=== PATIENT | male | born 1955 | race Caucasian/White ===

== ENCOUNTER → 2017-07-12 | Outpatient (CLI) | payer OTHER | LOC: FIMAGING 06:48 | PROVIDERS: ATTEND Family Medicine | DX: Z53.09 Procedure and treatment not carried out because of other contraindication (principal) ==

== ENCOUNTER → 2017-07-13 | Outpatient (CLI) | payer OTHER | LOC: FIMAGING 06:58 | PROVIDERS: ATTEND Family Medicine | DX: M25.512 Pain in left shoulder (principal); M25.511 Pain in right shoulder ==

== ENCOUNTER 2017-08-03 21:29 | Observation (INO) | payer OTHER ==
--- NOTE | 2017-08-03 21:54 | EDPHY ---
H & P Stated Complaint: bloating, abd pain on left side, diarrhea since this morning HPI/ROS: HPI CHIEF COMPLAINT: Abdominal pain, left-sided abdominal pain HISTORY OF PRESENT ILLNESS: This patient very pleasant 61-year-old male, significant past medical history for coronary artery disease with stents, inguinal hernia repair, he presents emergency room with abdominal pain. It is focal in one area left upper quadrant. Denies chest pain or shortness of breath. Pain is rather sharp in the left upper quadrant. It is worse when he breathes in however he denies any pleuritic pain or shortness of breath or chest pain. Pain is focal on exam and reproducible on exam. No flank pain. No urinary symptoms. No fever. No nausea or vomiting. Does endorse watery yellow diarrhea without blood. Past Medical History: Coronary artery disease with stents x2 Past Surgical History: Inguinal hernia repair Social History: Denies daily use of drugs alcohol tobacco. Intermittently smokes tobacco. Family History: Noncontributory ROS REVIEW OF SYSTEMS: A comprehensive 10 point review of systems is otherwise negative aside from elements mentioned in the history of present illness. Exam Constitutional appears well nontoxic triage nursing summary reviewed, vital signs reviewed, awake/alert. Eyes normal conjunctivae and sclera, EOMI, PERRLA. HENT normal inspection, atraumatic, moist mucus membranes, no epistaxis, neck supple/ no meningismus, no raccoon eyes. Respiratory clear to auscultation bilaterally, normal breath sounds, no respiratory distress, no wheezing. Cardiovascular rate normal, regular rhythm, no murmur, no edema, distal pulses normal. Gastrointestinal soft, focal tenderness in left upper quadrant, reproducible on exam, non-tender, no rebound, no guarding, normal bowel sounds, no distension , no pulsatile mass. Genitourinary no CVA tenderness. Musculoskeletal no midline vertebral tenderness, full range of motion, no calf swelling, no tenderness of extremities, no meningismus, good pulses, neurovascularly intact. Skin pink, warm, & dry, no rash, skin atraumatic. Neurologic awake, alert and oriented x 3, AAOx3, moves all 4 extremities equally, motor intact, sensory intact, CN II-XII intact, normal cerebellar, normal vision, normal speech. Psychiatric normal mood/affect. Heme/Lymph/Immune no lymphadenopathy. Differential diagnosis includes but is not limited to and in no particular order : Bowel obstruction, appendicitis, gallbladder disease, diverticulitis, colitis , enteritis, perforated viscus, gastritis, GERD, esophagitis, urinary tract infection, pyelonephritis, kidney stones Medical Decision Making: Plan for this patient IV establishment IV fluid bolus , he has declined pain medicine here in emergency room. Will proceed with CT scan abdomen pelvis with IV contrast to help delineate his acute left upper quadrant abdominal pain. Additionally will check troponin and D-dimer. EKG. Unlikely to be cardiac presentation given reproducible tenderness on exam. Re-evaluation: EKG interpretation by me on record in [facility] system. Impression time of EKG 2213, this is sinus rhythm rate of 72 no acute ischemia appreciated. Unremarkable EKG. 2256: Patient CT scan called to me by Dr. Dewayne Moore. Patient has acute diverticulitis mid descending colon with stranding. No perforation. No free air. 5: Discussed extensively with the patient about his acute diverticulitis with colonic stranding. He has uncomplicated diverticulitis however patient has ongoing pain declined pain medicine here in emergency room. He does have a leukocytosis. He is agreeable on hospital admission overnight for IV fluids bowel rest IV antibiotics. I feel that this is reasonable. There is no perforation or free air. There is no abscess formation. Patient admitted to the hospitalist service for acute diverticulitis. Source: Patient - Personal History Current Tetanus/Diphtheria Vaccine: Yes Current Tetanus Diphtheria and Acellular Pertussis (TDAP): Yes Tetanus Vaccine Date: <10 YRS - Medical/Surgical History Hx Asthma: No Hx Chronic Respiratory Disease: No Hx Diabetes: No Hx Cardiac Disease: Yes Hx Renal Disease: No Hx Cirrhosis: No Hx Alcoholism: No Hx HIV/AIDS: No Hx Splenectomy or Spleen Trauma: No Other PMH: 2 stents, 6 spinal sx, fused lumbvar and cervical, - Social History Smoking Status: Former smoker Constitutional: Initial Vital Signs Temperature (C) 37.1 C 08/03/17 21:31 Heart Rate 78 08/03/17 21:31 Respiratory Rate 18 08/03/17 21:31 Blood Pressure 131/98 H 08/03/17 21:31 O2 Sat (%) 94 08/03/17 21:31 O2 Delivery Mode Room Air Allergies/Adverse Reactions: No Allergies [NKA] Allergy (Verified 06/07/11 15:31) Home Medications: Medication Instructions Recorded Cholecalciferol Vit D3 [Vitamin D3 1,000 units PO BID 07/26/12 (*)] Losartan Potassium [Cozaar 50 mg 50 mg PO DAILY 07/26/12 (RX)] Metoprolol Tartrate [Lopressor 50 50 mg PO BID 07/26/12 mg (*)] [place]-3 Fatty Acids [Fish Oil 1000 1,000 mg PO BID 07/26/12 mg (*)] Rosuvastatin Calcium [Crestor 20mg 20 mg PO DAILY 07/26/12 (*)] Herbals/Supplements -Info Only 1 ea PO DAILY 11/07/14 ASPIRIN 08/03/17 Clopidogrel 08/03/17 Coq-10 08/03/17 Lutein 08/03/17 Zetia 08/03/17 Medical Decision Making - Diagnostics Imaging Results: Imaging Impressions Abdomen CT 08/03/17 22:03 Impression: Moderate diverticulitis in the middescending colon. Other chronic findings as above. Results called and discussed with Darren Correa MD, 03 August 2017 at 2258 hours. - Data Points Laboratory Results: Laboratory Results 08/03/17 21:50 08/03/17 21:50 08/03/17 08/03/17 08/03/17 22:20 22:15 21:50 WBC RBC Hgb Hct MCV MCH MCHC RDW Plt Count MPV Neut % (Auto) Lymph % (Auto) [place] % (Auto) Eos % (Auto) Baso % (Auto) Nucleat RBC Rel Count Absolute Neuts (auto) Absolute Lymphs (auto) Absolute Monos (auto) Absolute Eos (auto) Absolute Basos (auto) Absolute Nucleated RBC Immature Gran % Immature Gran # PT 13.1 SEC SEC (12.0-15.0) INR 1.00 (0.83-1.16) APTT 27.3 SEC SEC (23.0-38.0) D-Dimer < 0.27 ug/mLFEU ug/mLFEU (0.00-0.50) VBG Lactic Acid 0.8 mmol/L mmol/L (0.7-2.1) Sodium Potassium Chloride Carbon Dioxide Anion Gap BUN Creatinine Estimated GFR Glucose Calcium Total Bilirubin Conjugated Bilirubin Unconjugated Bilirubin AST ALT Alkaline Phosphatase Troponin I Total Protein Albumin Lipase Urine Color YELLOW Urine Appearance CLEAR Urine pH 5.0 (5.0-7.5) Ur Specific [place] 1.024 (1.002-1.030) Urine Protein NEGATIVE (NEGATIVE) Urine Ketones TRACE H (NEGATIVE) Urine Blood NEGATIVE (NEGATIVE) Urine Nitrate NEGATIVE (NEGATIVE) Urine Bilirubin NEGATIVE (NEGATIVE) Urine Urobilinogen 2.0 EU H EU (0.2-1.0) Ur Leukocyte Esterase NEGATIVE (NEGATIVE) Urine Glucose NEGATIVE (NEGATIVE) 08/03/17 08/03/17 21:50 21:50 WBC 9.76 10^3/uL H 10^3/uL (3.80-9.50) RBC 4.82 10^6/uL 10^6/uL (4.40-6.38) Hgb 17.2 g/dL g/dL (13.7-17.5) Hct 47.9 % % (40.0-51.0) MCV 99.4 fL fL (81.5-99.8) MCH 35.7 pg H pg (27.9-34.1) MCHC 35.9 g/dL g/dL (32.4-36.7) RDW 12.4 % % (11.5-15.2) Plt Count 164 10^3/uL 10^3/uL (150-400) MPV 9.8 fL fL (8.7-11.7) Neut % (Auto) 72.1 % % (39.3-74.2) Lymph % (Auto) 17.9 % % (15.0-45.0) [place] % (Auto) 8.4 % % (4.5-13.0) Eos % (Auto) 0.7 % % (0.6-7.6) Baso % (Auto) 0.5 % % (0.3-1.7) Nucleat RBC Rel Count 0.0 % % (0.0-0.2) Absolute Neuts (auto) 7.03 10^3/uL H 10^3/uL (1.70-6.50) Absolute Lymphs (auto) 1.75 10^3/uL 10^3/uL (1.00-3.00) Absolute Monos (auto) 0.82 10^3/uL H 10^3/uL (0.30-0.80) Absolute Eos (auto) 0.07 10^3/uL 10^3/uL (0.03-0.40) Absolute Basos (auto) 0.05 10^3/uL 10^3/uL (0.02-0.10) Absolute Nucleated RBC 0.00 10^3/uL 10^3/uL (0-0.01) Immature Gran % 0.4 % % (0.0-1.1) Immature Gran # 0.04 10^3/uL 10^3/uL (0.00-0.10) PT INR APTT D-Dimer VBG Lactic Acid Sodium 135 mEq/L mEq/L (134-144) Potassium 3.9 mEq/L mEq/L (3.5-5.2) Chloride 98 mEq/L mEq/L (97-110) Carbon Dioxide 27 mEq/l mEq/l (22-31) Anion Gap 10 mEq/L mEq/L (8-16) BUN 18 mg/dL mg/dL (7-23) Creatinine 0.9 mg/dL mg/dL (0.7-1.3) Estimated GFR > 60 Glucose 95 mg/dL mg/dL (70-100) Calcium 9.6 mg/dL mg/dL (8.5-10.4) Total Bilirubin 1.1 mg/dL mg/dL (0.1-1.4) Conjugated Bilirubin 0.3 mg/dL mg/dL (0.0-0.5) Unconjugated Bilirubin 0.8 mg/dL mg/dL (0.0-1.1) AST 33 IU/L IU/L (17-59) ALT 47 IU/L IU/L (21-72) Alkaline Phosphatase 82 IU/L IU/L (38-126) Troponin I < 0.012 ng/mL ng/mL (0.000-0.034) Total Protein 6.2 g/dL L g/dL (6.3-8.2) Albumin 3.9 g/dL g/dL (3.5-5.0) Lipase 38 IU/L IU/L (23-300) Urine Color Urine Appearance Urine pH Ur Specific [place] Urine Protein Urine Ketones Urine Blood Urine Nitrate Urine Bilirubin Urine Urobilinogen Ur Leukocyte Esterase Urine Glucose Medications Given: Metronidazole/Sodium Chloride (Flagyl 500 Mg (Premix)) 100 mls @ 100 mls/hr IV EDNOW ONE PRN Reason: Protocol Stop: 08/03/17 23:55 Last Admin: 08/03/17 23:24 Dose: 100 mls Discontinued Medications Sodium Chloride (Ns) 1,000 mls @ 0 mls/hr IV EDNOW ONE; Wide Open PRN Reason: Protocol Stop: 08/03/17 22:04 Last Admin: 08/03/17 22:19 Dose: 1,000 mls Departure - Departure Disposition: [facility] Inpatient Acute Clinical Impression: Diverticulitis Qualifiers: Diverticulitis site: large intestine Diverticulitis bleeding: without bleeding Diverticulitis complication: unspecified complication status Qualified Code(s): K57.32 - Diverticulitis of large intestine without perforation or abscess without bleeding Condition: Fair Referrals: Tobias Blake MD [Primary Care Provider] - As per Instructions
[2017-08-03] MEDS ORDERED: NS 1,000 ML IV ONE (22:03)
--- NOTE | 2017-08-03 22:15 | CPEKG ---
Heart Rate: 72 RR Interval: 833 P-R Interval: 164 QRSD Interval: 80 QT Interval: 384 QTC Interval: 421 P [place]: 40 QRS [place]: 29 T Wave [place]: 36 EKG Severity - OTHERWISE NORMAL ECG - EKG Impression: SINUS RHYTHM EKG Impression: ABERRANT COMPLEX, POSSIBLY SUPRAVENTRICULAR Electronically Signed By: Darren Correa 04-Aug-2017 07:19:49
[2017-08-03 22:18] LABS: % IMMATURE GRANULYOCYTES 0.4 % (0.0-1.1); ABSOLUTE IMMATURE GRANULOCYTES 0.04 10^3/uL (0.00-0.10); ADD DIFF? NO; ADD MORPH? NO; ADD SCAN? NO; ATYPICAL LYMPHOCYTE FLAG 0 (0-99); FRAGMENT RBC FLAG 0 (0-99); HEMATOCRIT 47.9 % (40.0-51.0); HEMOGLOBIN 17.2 g/dL (13.7-17.5); LEFT SHIFT FLG 0 (0-99); LIPEMIA HEMOLYSIS FLAG 90 (0-99); MEAN CELL HEMOGLOBIN 35.7 pg (27.9-34.1); MEAN CELL HEMOGLOBIN CONCENTR. 35.9 g/dL (32.4-36.7); MEAN CELL VOLUME 99.4 fL (81.5-99.8); MEAN PLATELET VOLUME 9.8 fL (8.7-11.7); PLATELET CLUMPS FLAG 0 (0-99); PLATELET COUNT 164 10^3/uL (150-400); RED BLOOD CELL COUNT 4.82 10^6/uL (4.40-6.38); RED CELL DISTRIBUTION WIDTH 12.4 % (11.5-15.2)
[2017-08-03 22:23] LABS: PROTIME(PATIENT) 13.1 SEC (12.0-15.0)
[2017-08-03] MEDS ORDERED: IOPAMIDOL (ISOVUE-300) 100 ML BTL ONE (22:25)
[2017-08-03 22:26] LABS: APTT 27.3 SEC (23.0-38.0)
[2017-08-03 22:33] LABS: COLOR YELLOW; LEUKOCYTE ESTERASE,URINE NEGATIVE (NEGATIVE); NITRITE,URINE NEGATIVE (NEGATIVE)
[2017-08-03 22:35] LABS: ALANINE AMINOTRANSFERASE 47 IU/L (21-72); ALBUMIN 3.9 g/dL (3.5-5.0); ALKALINE PHOSPHATASE 82 IU/L (38-126); ANION GAP 10 mEq/L (8-16); ASPARTATE AMINOTRANSFERASE 33 IU/L (17-59); BILIRUBIN,TOTAL 1.1 mg/dL (0.1-1.4); BILIRUBIN-CONJUGATED 0.3 mg/dL (0.0-0.5); BILIRUBIN-UNCONJUGATED 0.8 mg/dL (0.0-1.1); CALCIUM 9.6 mg/dL (8.5-10.4); CARBON DIOXIDE 27 mEq/l (22-31); CHLORIDE 98 mEq/L (97-110); CREATININE 0.9 mg/dL (0.7-1.3); GLOMERULAR FILTRATION RATE > 60; GLUCOSE 95 mg/dL (70-100); POTASSIUM 3.9 mEq/L (3.5-5.2); SODIUM 135 mEq/L (134-144); TOTAL PROTEIN 6.2 g/dL (6.3-8.2)
[2017-08-03 22:46] LABS: TROPONIN I < 0.012 ng/mL (0.000-0.034)
[2017-08-03] MEDS ORDERED: CIPROFLOXACIN 200 MG/DEXTROSE 100 ML IV ONE (22:56)
[2017-08-04] MEDS ORDERED: ONDANSETRON 4 MG/2 ML VIAL IVP PRN (01:03)
[2017-08-04] MEDS ORDERED: HYDROCODONE/APAP 5/325 TAB PO PRN (01:03)
[2017-08-04] MEDS ORDERED: ACETAMINOPHEN 325 MG TAB PO PRN (01:03)
[2017-08-04] MEDS ORDERED: NS 1,000 ML IV SCH (01:15)
[2017-08-04 05:51] LABS: % IMMATURE GRANULYOCYTES 0.8 % (0.0-1.1); ABSOLUTE IMMATURE GRANULOCYTES 0.07 10^3/uL (0.00-0.10); ADD DIFF? NO; ADD MORPH? NO; ADD SCAN? NO; ATYPICAL LYMPHOCYTE FLAG 20 (0-99); FRAGMENT RBC FLAG 0 (0-99); HEMATOCRIT 43.5 % (40.0-51.0); HEMOGLOBIN 15.2 g/dL (13.7-17.5); LEFT SHIFT FLG 10 (0-99); LIPEMIA HEMOLYSIS FLAG 90 (0-99); MEAN CELL HEMOGLOBIN 34.5 pg (27.9-34.1); MEAN CELL HEMOGLOBIN CONCENTR. 34.9 g/dL (32.4-36.7); MEAN CELL VOLUME 98.9 fL (81.5-99.8); MEAN PLATELET VOLUME 9.9 fL (8.7-11.7); PLATELET CLUMPS FLAG 0 (0-99); PLATELET COUNT 136 10^3/uL (150-400); RED CELL DISTRIBUTION WIDTH 12.2 % (11.5-15.2)
[2017-08-04 06:19] LABS: ALANINE AMINOTRANSFERASE 39 IU/L (21-72); ALBUMIN 3.3 g/dL (3.5-5.0); ALKALINE PHOSPHATASE 67 IU/L (38-126); ANION GAP 10 mEq/L (8-16); ASPARTATE AMINOTRANSFERASE 21 IU/L (17-59); BILIRUBIN,TOTAL 1.2 mg/dL (0.1-1.4); CALCIUM 8.5 mg/dL (8.5-10.4); CARBON DIOXIDE 23 mEq/l (22-31); CHLORIDE 104 mEq/L (97-110); CREATININE 0.8 mg/dL (0.7-1.3); GLOMERULAR FILTRATION RATE > 60; GLUCOSE 82 mg/dL (70-100); POTASSIUM 3.9 mEq/L (3.5-5.2); SODIUM 137 mEq/L (134-144); TOTAL PROTEIN 5.3 g/dL (6.3-8.2)
--- NOTE | 2017-08-04 07:05 | GHP ---
[f rep st] HISTORY AND PHYSICAL DATE OF ADMISSION: 08/04/2017 SOURCE: Patient provides history, appears reliable. CHIEF COMPLAINT: Left lower quadrant abdominal pain. HISTORY OF PRESENT ILLNESS: This is a very pleasant 61-year-old gentleman with past medical history significant for CAD, hypertension, hyperlipidemia, chronic back pain, who presents to the emergency d [facility] today with complaints of persistent left mid lower abdominal pain. Patient reports that sy mptoms started approximately 0300 on the day prior to admission. He states that he developed intermi ttent achy cramping abdominal pain, as well as some associated diarrhea. He denies any melena or hem atochezia. Patient did not have any fevers, chills, nausea, or vomiting. He does report some cold s weats with the diarrhea, but nothing since he has arrived to the medical floor. In the emergency dep artment, patient was started on ciprofloxacin and Flagyl. He declined IV pain medications, and nathalia smith on the floor, reports that his pain is almost gone, except for 1 location on the left lower late ral abdomen. REVIEW OF SYSTEMS: GENERAL: Denies any fevers or chills. Did have some cold sweats. SKIN: No kilo hes or sores. ENT: Patient denies any congestion or sore throat. EYES: Patient denies any acute c hanges in vision or ocular pain. CV: Patient denies any chest pain, palpitations. RESPIRATORY: No shortness of breath or cough. GI: Symptoms as above in HPI. : No dysuria or hematuria. MUSCUL OSKELETAL: Strength in upper and lower extremities intact. Moves all extremities. NEURO: Grossly nonfocal. No facial drooping. PSYCH: Patient's mentation appropriate. No SI or HI. ALLERGIES: No known drug allergies. HOME MEDICATIONS: Zetia, lutein, Co-Q 10, clopidogrel, aspirin, Crestor, fish oil, metoprolol, losar burgess, vitamin D3, and other herbal supplements. PAST MEDICAL HISTORY: Significant for CAD with history of stent placement x2, hyperlipidemia, hypert ension, chronic neck and back pain with radicular symptoms. PAST SURGICAL HISTORY: Significant for right inguinal hernia repair, cardiac cath with stenting, ton sillectomy, adenoidectomy. FAMILY HISTORY: Patient reports that his children are healthy. Sister with history of gestational d iabetes. Otherwise, no other family members with medical issues. SOCIAL HISTORY: Patient lives with his . He does not smoke or do drugs. He does drink occasion al alcohol. CODE STATUS: Full. Patient desires to act as proxy if needed. PHYSICAL EXAMINATION: VITAL SIGNS: On arrival to the ER, blood pressure was 131/98, heart rate 78, respiratory rate 18, O2 saturation 94% on room air, temperature 37.1. Current vitals: Blood pressur e 123/75, heart rate 78, respiratory rate 18, O2 saturation 91% on room air, temperature 37.3. GENER AL: No acute distress, pleasant adult male, is resting comfortably in bed, awake. HEAD: Normocepha lic, atraumatic. EYES: Extraocular muscles grossly intact. No scleral icterus or conjunctival inje ction. Pupils equal, round, reactive to light bilaterally and symmetric. No scleral icterus or conj unctival injection. ENT: Mucous membranes appear moist. No oropharyngeal erythema or exudates. CV : Regular rate and rhythm. No murmurs, rubs, or gallops appreciated. RESPIRATORY: Lungs are clear to auscultation bilaterally. No wheezes, rales, or rhonchi. ABDOMEN: Obese, soft. Tenderness to palpation in the left lower lateral abdomen. No rebound, guarding, or masses. Some slight voluntary withdrawal from exam. : No suprapubic tenderness to palpation. No Uribe catheter. EXTREMITIES: No cyanosis, clubbing, or edema. Patient with 2+ pedal pulses. PSYCH: Thought process, content, and questions appropriate. Patient without any SI or HI. LABORATORY DATA: 1. WBCs 9.76, H and H 17.2 and 47.9, MCV 99.4, platelet count is 164. 2. PT is 13.1. INR is 1.00. PTT is 27.3. D-dimer is negative. 3. Lactic acid 0.8. 4. Sodium is 135, potassium 3.9, chloride is 98, CO2 of 27, anion gap 10, BUN 18, creatinine 0.9, es timated GFR greater than 60, glucose 95, calcium is 9.6. Total bilirubin is , ALT is 47, A ST is 32, alkaline phosphatase 82. Troponin is negative. is 6.2, albumin is 3.9, lipase is 38. 5. UA: Color , specific gravity 1.024, pH is 5.0, trace ketones, 2.0 urobilinogen, otherw ise, negative. 6. CT abdomen and pelvis significant for moderate diverticulitis in the mid ascending colon, bowel w all thickening in the mid descending colon with a few diverticula, adjacent stranding in the paracolo eleanor fat. No evidence of free intraperitoneal air. 7. EKG, reviewed myself, shows normal sinus rhythm with PACs. No acute ST changes. ASSESSMENT AND PLAN: A pleasant 61-year-old gentleman, who presents with complaints of 1 day onset o f left lower quadrant pain. 1. Acute diverticulitis in the mid descending colon. Patient has been started on Flagyl and ciprofl oxacin in the emergency department. Will transition this to p.o. I did review with the patient risk s and benefits of the antibiotics including Flagyl, monitoring Flagyl with alcohol, and to avoid cont act sports surrounding the time of taking ciprofloxacin. I also encouraged patient to take medicatio ns with a source of food but okay to take his medications with new antibiotic therapy. 2. Benign essential hypertension. Blood pressure is improved since arrival. Continue losartan and metoprolol. 3. Hyperlipidemia. Continue statin. 4. Coronary artery disease. Continue aspirin, statin, beta juany, and ARB. 5. Chronic back pain. Supportive care. Pain medications as per patient's current regimen, which he insists upon. 6. Fluid, electrolytes, and nutrition. IV fluids. Electrolyte replacement p.r.n. Advance diet as tolerated. 7. Prophylaxis. SCDs. Lovenox. 8. COR status is full. DISPOSITION: Patient will be admitted to observation on the medical floor for observation of his acu te symptoms. Anticipate that he will be able to discharge in the next 1-2 days. /[id number]/MODL
[2017-08-04] MEDS ORDERED: metroNIDAZOLE 500 MG TAB PO SCH (08:00)
--- NOTE | 2017-08-04 08:28 | HOSPPROG ---
Hospitalist Progress Note Assessment/Plan: Patient is a 61 y/o male who presented to the ER with c/p left lower abdominal pain. This is my first encounter with the patient, chart reviewed. *Moderate diverticulitis -no elevated wbc count, afebrile -CT scan shows moderate diverticulitis -should get a colonoscopy in 6 weeks for f/u -cont flagyl and cipro *HTN -blood pressure stable *HLD -resume home meds *CAD -resume home meds * plan. Stay on antibiotics for the next 7 - 10 days. Continue clear liquids for the next few days until symptoms have improved Subjective: Eduardo is feeling better. pain has decreased significantly. Objective: Vital Signs Temp Pulse Resp BP Pulse Ox 37.3 C 78 18 123/75 H 91 L 08/04/17 04:07 08/04/17 04:07 08/04/17 04:07 08/04/17 04:07 08/04/17 04:07 Laboratory Results 08/04/17 04:49 08/04/17 04:49 08/03/17 08/04/17 08/05/17 05:59 05:59 05:59 Intake Total 1600 Balance 1600 PT 13.1 SEC (12.0-15.0) 08/03/17 21:50 INR 1.00 (0.83-1.16) 08/03/17 21:50 - Physical Exam Constitutional: no apparent distress, appears nourished, not in pain Eyes: PERRL Ears, Nose, Mouth, Throat: hearing normal Cardiovascular: regular rate and rhythym Respiratory: no respiratory distress Gastrointestinal: normoactive bowel sounds, tenderness (llq area) Skin: warm, normal color Musculoskeletal: full muscle strength Neurologic: AAOx3 Psychiatric: interacting appropriately ICD10 Worksheet Patient Problems: Problems Problem Status Onset Diverticulitis Acute Arthrodesis status Acute Cervical radiculitis Acute
[2017-08-04 08:32] VITALS: RESP 16; O2SAT 93
[2017-08-04] MEDS ORDERED: CIPROFLOXACIN 500 MG TAB PO SCH (10:00)
--- NOTE | 2017-08-04 11:39 | ASMTCMCOM ---
CM Note CM Note Notes: Spoke w/RN, anticipate pt will dc home w/support of when medically stable. CM available for any changes. Date Signed: 08/04/2017 11:38 AM Electronically Signed By:Katelyn Holt RN
[2017-08-04 11:52] VITALS: BP 113/69; PULSE 57; TEMP 98.1
--- NOTE | 2017-08-04 16:33 | ASDISCHSUM ---
Discharge Information Plan Status:Home with No Needs Medically Cleared to Leave: Discharge Date:08/04/2017 01:57 PM CM D/C Disposition:Home, Routine, Self-Care ADT D/C Disposition:Home, Routine, Self-Care Projected Discharge Date:08/04/2017 01:57 PM Transportation at D/C:Family Discharge Delay Reason: Follow-Up Date:08/04/2017 01:57 PM Discharge Slot: Final Diagnosis: Placement Information Patient Contact Information Contact Name:GARETT Relationship: Address:[address] City:[facility] Phone: [facility]/Zip Code:[place] [address] Email: Financial Information Financial Class:Medicare Advantage Plans Primary Plan Desc:[facility] ADVANTAGE PLANS Primary Plan Number:[id number] Secondary Plan Desc: Secondary Plan Number: Assessment Information [facility] CM Progress Note CM Note CM Note Notes: Spoke w/RN, anticipate pt will dc home w/support of when medically stable. CM available for any changes. Date Signed: 08/04/2017 11:38 AM Electronically Signed By:Katelyn Holt RN Intervention Information Intervention Type:*MURRELL-Signed Date of Service:08/04/2017 09:22 AM Patient Type:Observation Staff Member:Romi Marks Hours: Discipline: Severity: Comment:
--- NOTE | 2017-08-04 17:13 | GDS ---
[f rep st] DISCHARGE SUMMARY DISCHARGE DIAGNOSES: 1. Acute diverticulitis. 2. Hypertension. 3. Hyperlipidemia. 4. Coronary artery disease. HISTORY OF PRESENT ILLNESS: Briefly, the patient is a 61-year-old gentleman who presented to the ER with complaints of left lower abdominal pain. He was treated with IV antibiotics for diverticulitis. He has improved, and will continue antibiotics for the next 8 days. HOSPITAL COURSE: 1. Moderate diverticulitis. He has no elevated white blood cell count, and he is afebrile. The CT scan shows moderate diverticulitis. He should get followup next week with his primary care provider and get a follow up colonoscopy. He will be continued on Flagyl and Cipro. 2. Hypertension. Blood pressure is stable. 3. Hyperlipidemia, on statin therapy. 4. Coronary artery disease. Home medications have been resumed. CONDITION ON DISCHARGE: Stable. Blood pressure is 123/75, respiratory rate is 18, pulse 78, temperature 37.3 Celsius, O2 saturation on room air 91%. MEDICATIONS AT DISCHARGE: Please see the EMR. DISCHARGE INSTRUCTIONS: 1. Take antibiotics as prescribed. Do not drink any alcohol while on the Flagyl. Be aware that Cipro can cause tendinitis, and if he has increased pain to hold this medication and follow up with PCP. 2. If he develops fever, chills, worsening abdominal pain, to return to the ER. Copy requested to: Primary Care Provider /[id number]/MODL JONATHAN
[2017-08-04] MEDS ORDERED: ASPIRIN 81 MG CHEWABLE TAB PO SCH (21:00)
[2017-08-04] MEDS ORDERED: METOPROLOL TARTRATE 50 MG TAB PO SCH (21:00)
[2017-08-05] MEDS ORDERED: ROSUVASTATIN CALCIUM 20 MG TAB PO SCH (09:00)
[2017-08-05] MEDS ORDERED: LOSARTAN POTASSIUM 50 MG TAB PO SCH (09:00)
[2017-08-05] MEDS ORDERED: EZETIMIBE 10 MG TAB PO SCH (09:00)
[2017-08-05] MEDS ORDERED: Herbals/Supplements -Info Only PO SCH (09:00)
[2017-08-05] MEDS ORDERED: CLOPIDOGREL BISULFATE 75 MG TAB PO SCH (09:00)
== END 2017-08-04 13:57 | disposition home or self-care (01) ==
LOC: F3E 08-04 00:48
PROVIDERS: ADMIT Family Medicine; ATTEND Student in an Organized Health Care Education/Training Program
DX: K57.32 Diverticulitis of large intestine without perforation or abscess without bleeding (principal); Z95.5 Presence of coronary angioplasty implant and graft; I25.10 Atherosclerotic heart disease of native coronary artery without angina pectoris; F17.200 Nicotine dependence, unspecified, uncomplicated; M54.5 Low back pain; Z98.1 Arthrodesis status
CPT/HCPCS: 74177; 93005; G0378; Q9967; 96365

== ENCOUNTER 2017-10-13 07:22 | Day surgery (SDC) | payer OTHER ==
[2017-10-13] MEDS ORDERED: LR 1,000 ML IV ONE ×2 (07:31→07:41)
[2017-10-13] MEDS ORDERED: LIDOCAINE 1% 2 ML INJ ID PRN (07:41)
[2017-10-13] MEDS ORDERED: LIDOCAINE 2% 5 ML SDV ONE (09:40)
[2017-10-13] MEDS ORDERED: PROPOFOL/EMULSION 500 MG/50 ML BOTTLE IV ONE (09:40)
--- NOTE | 2017-10-13 10:00 | PDGENHP ---
History & Physical Chief Complaint: Colon polyp. Needs EMR History of Present Illness: EMR of colon polyp seen on previous colonoscopy Pertinent Past, Social, Family History: CAD on plavix (held for 7 days). Personal history of colon polyps Relevant Physical Exam: NAD. CTA B/L. RRR without m/r/g. GI soft. NABS. No TTP Cardiorespiratory Assessment: ASA II. Colonoscopy
--- NOTE | 2017-10-13 10:06 | POSTANESTH ---
Post Anesthetic Evaluation Respiratory Status: Normal, Stable Level of Consciousness/Mental Status: Can Participate in Eval Pain Control: Adequate, Prn Tx Ordered Nausea/Vomiting Control: Adequate, Prn Tx Ordered Complications Possibly Related to Anesthesia: None Noted
[2017-10-13] MEDS ORDERED: NALOXONE HCL 0.4 MG/ML INJ IVP PRN (10:07)
--- NOTE | 2017-10-13 10:07 | PDANEPAE ---
ANE History of Present Illness 61 year old male for colonoscopy ANE Past Medical History - Cardiovascular History Hx Hypertension: Yes Hx Arrhythmias: No Hx Chest Pain: No Hx Coronary Artery / Peripheral Vascular Disease: Yes Hx CHF / Valvular Disease: No Hx Palpitations: No - Pulmonary History Hx COPD: No Hx Asthma/Reactive Airway Disease: No Hx Recent Upper Respiratory Infection: No Hx Oxygen in Use at Home: No Hx Sleep Apnea: No Sleep Apnea Screening Result - Last Documented: Positive - Neurologic History Hx Cerebrovascular Accident: No Hx Seizures: No Hx Dementia: No - Endocrine History Hx Diabetes: No - Renal History Hx Renal Disorders: No - Liver History Hx Hepatic Disorders: No - Neurological & Psychiatric Hx Hx Neurological and Psychiatric Disorders: Yes Neurological / Psychiatric History Comment: neuropathy feet and hands - Cancer History Hx Cancer: No - Congenital Disorder History Hx Congenital Disorders: No - GI History Hx Gastrointestinal Disorders: Yes Gastrointestinal History Comment: diverticulitis,polyps - Other Health History Other Health History: Arthritis in spine. Bruises easily due to meds. - Chronic Pain History Chronic Pain: Yes (back and neck) - Surgical History Prior Surgeries: 2011-lumbar fusion. 05/2011-lumbar discectomy. 06/2011-lumbar discectomy. 1992-lumbar discectomy.1990-R ing. hernia. Tonsils as child. ANE Review of Systems Review of Systems: - Exercise capacity METS (RN): 4 METS ANE Patient History - Allergies Allergies/Adverse Reactions: No Allergies [NKA] Allergy (Verified 09/30/17 11:29) - Home Medications Home Medications: Losartan Potassium [Cozaar 50 mg (*)] 07/26/12 [Last Taken 10/13/17] Metoprolol Tartrate [Lopressor 50 mg (*)] 07/26/12 [Last Taken 10/13/17] Rosuvastatin Calcium [Crestor 20mg (*)] 07/26/12 [Last Taken 10/13/17] Herbals/Supplements -Info Only 11/07/14 [Last Taken 10/06/17] Aspirin [Aspirin 81mg (*)] 08/03/17 [Last Taken 10/11/17] Clopidogrel Bisulfate [Plavix (*)] 08/03/17 [Last Taken 10/06/17] Ezetimibe [Zetia 10 MG (*)] 08/03/17 [Last Taken 10/13/17] - NPO status NPO Since - Liquids (Date): 10/13/17 NPO Since - Liquids (Time): 07:00 NPO Since - Solids (Date): 10/12/17 NPO Since - Solids (Time): 09:00 - Smoking Hx Smoking Status: Former smoker - Family Anes Hx Family Hx Anesthesia Complications: none ANE Labs/Vital Signs - Vital Signs Blood Pressure: 92/63 Heart Rate: 56 Respiratory Rate: 16 O2 Sat (%): 95 Height: 182.88 cm Weight: 81.647 kg ANE Physical Exam - Airway Mallampati Score: Class 1 - ASA Status ASA Status: II ANE Anesthesia Plan Anesthesia Plan: MAC
--- NOTE | 2017-10-13 10:49 | GIREPORT ---
[facility] Surgical Services - Endoscopy Department Patient Name: Perez Plaza Procedure Date: 10/13/2017 9:27 AM Patient Type: Outpatient Attending / ER Physician: Buck Braun MD Procedure: Colonoscopy Indications: High risk colon cancer surveillance: Personal history of colonic polyps Providers: Buck Braun MD Medicines: Propofol per Anesthesia Complications: No immediate complications. Description of Procedure: After obtaining informed consent, the scope was passed under direct vis ion. Throughout the procedure, the patient's blood pressure, pulse, and oxyg en saturations were monitored continuously. The Colonoscope with irrigatio n channel was introduced through the anus and advanced to the cecum, identified by appendiceal orifice and ileocecal valve. The colonoscopy was performed without difficulty. The patient tolerated the procedure well. The quality of the bowel preparation was excellent. The ileocecal valve, appendiceal orifice, and rectum were photographed. Findings: The perianal and digital rectal examinations were normal. Pertinent negatives include normal sphincter tone, no palpable rectal lesions and normal prostate (size, shape, and consistency). A 16 mm post polypectomy scar was found in the proximal ascending colon . There was residual polyp tissue. Preparations were made for mucosal resection. Saline was injected to raise the lesion. Piecemeal mucosal resection using a snare was performed. Resection and retrieval were complete. Coagulation for tumor destruction using argon plasma at 0.3 liters/minute and 20 salomon was successful. Area was tattooed with an injection of 3 mL of Spot (carbon black). A 5 mm polyp was found in the transverse colon. The polyp was sessile. The polyp was removed with a cold biopsy forceps. Resection and retrieval w ere complete. Multiple small and large-mouthed diverticula were found in the sigmoid colon. Estimated Blood Loss: Estimated blood loss: none. Post Op Diagnosis: - Post-polypectomy scar in the proximal ascending colon. EMR done successfully. Area also treated with argon plasma coagulation (APC). Tattooed. - One 5 mm polyp in the transverse colon, removed with a cold biopsy forceps. Resected and retrieved. - Diverticulosis in the sigmoid colon. - Mucosal resection was performed. Resection and retrieval were complet e. Recommendation: - Await pathology results. - Repeat colonoscopy in 3 years for surveillance. - Resume previous diet. - Resume Plavix (clopidogrel) at prior dose in 5 days. [facility]. - Patient has a contact number available for emergencies. The signs and symptoms of potential delayed complications were discussed with the pat ient. Return to normal activities tomorrow. Written discharge instructions we re provided to the patient. - Thank you for allowing me to be involved in the care of your patient. Attending Participation: I personally performed the entire procedure without the assistance of a fellow, resident or surg ical assistant to the president. Buck Braun MD Buck Braun MD 10/13/2017 10:48:47 AM This report has been signed electronicallyDavid MD Aparna Number of Addenda: 0 Note Initiated On: 10/13/2017 9:27 AM Total Procedure Duration Time 0 hours 27 minutes 59 seconds [email or web address]
[2017-10-13 10:57] VITALS: RESP 18
[2017-10-13 11:40] VITALS: BP 121/88; PULSE 59; TEMP 208.8; O2SAT 93
== END 2017-10-13 11:20 | disposition home or self-care (01) ==
LOC: FSGY 07:22
PROVIDERS: ATTEND Internal Medicine Gastroenterology
PROC: 0DBK8ZX Excision of Ascending Colon, Via Natural or Artificial Opening Endoscopic, Diagnostic (ICD-10-PCS; principal; 2017-10-13 09:00)
PROC: 0DBL8ZX Excision of Transverse Colon, Via Natural or Artificial Opening Endoscopic, Diagnostic (ICD-10-PCS; principal; 2017-10-13 09:00)
PROC: 0D5K8ZZ Destruction of Ascending Colon, Via Natural or Artificial Opening Endoscopic (ICD-10-PCS; principal; 2017-10-13 09:00)
DX: D12.2 Benign neoplasm of ascending colon (principal); K63.5 Polyp of colon; K57.30 Diverticulosis of large intestine without perforation or abscess without bleeding; I25.10 Atherosclerotic heart disease of native coronary artery without angina pectoris; I10 Essential (primary) hypertension; Z86.010 Personal history of colon polyps; Z98.1 Arthrodesis status
CPT/HCPCS: J2704

== ENCOUNTER 2018-03-19 20:35 | Emergency (ER) | payer OTHER ==
--- NOTE | 2018-03-19 22:17 | EDPHY ---
H & P Time Seen by Provider: 03/19/18 21:30 HPI/ROS: CHIEF COMPLAINT: Right thumb laceration HISTORY OF PRESENT ILLNESS: 62-year-old left-hand dominant male presents to the emergency department with laceration to his right thumb. The patient was at home using a knife in the kitchen and accidentally cut his right thumb. The incident happened just prior to arrival. Denies any other injuries or trauma. He believes his tetanus shot is current. ROS: Denies numbness or tingling in his fingers, retained foreign body. 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 There is no active bleeding noted. No injury to the thumb nail. No palpable bony tenderness. No evidence of tendon injury. Normal sensation to light touch with normal 2 point discrimination. The other fingers do not appear injured. Constitutional: Initial Vital Signs Temperature (C) 36.3 C 03/19/18 20:48 Heart Rate 67 03/19/18 20:48 Respiratory Rate 16 03/19/18 20:48 Blood Pressure 96/61 L 03/19/18 20:48 O2 Sat (%) 94 03/19/18 20:48 O2 Delivery Mode Room Air Allergies/Adverse Reactions: No Allergies [NKA] Allergy (Verified 09/30/17 11:29) Home Medications: Medication Instructions Recorded Losartan Potassium [Cozaar 50 mg 07/26/12 (*)] Metoprolol Tartrate [Lopressor 50 07/26/12 mg (*)] Rosuvastatin Calcium [Crestor 20mg 07/26/12 (*)] Herbals/Supplements -Info Only 11/07/14 Aspirin [Aspirin 81mg (*)] 08/03/17 Ezetimibe [Zetia 10 MG (*)] 08/03/17 MDM/Departure - [facility] Procedures: Laceration repair. Verbal consent was obtained from the patient. The 2 cm flap laceration on the right thumb was anesthetized using digital block using 1% lidocaine without epinephrine 0.5% bupivacaine without epinephrine. The wound was irrigated with saline, draped and explored to its base with a gloved finger. There were no deep structures involved. No tendon injury was identified. The wound was repaired with 4 0 Ethilon, 3 sutures. The wound repair was simple. The procedure was performed by myself. ED Course/Re-evaluation: 62-year-old male presents to the emergency department with right thumb laceration. The wound was repaired, see procedure note. Patient was given wound care precautions. - Depart Disposition: Home, Routine, Self-Care Clinical Impression: Laceration of right thumb Qualifiers: Encounter type: initial encounter Damage to nail status: without damage Foreign body presence: without foreign body Qualified Code(s): S61.011A - Laceration without foreign body of right thumb without damage to nail, initial encounter Condition: Good Instructions: Care For Your Stitches (ED), Laceration (ED), Acute Wounds (ED) Additional Instructions: Wound Care Follow-Up: Removal of sutures in 10 days. Suture removal is complimentary in uncomplicated cases. Infection or abnormal findings would require reevaluation by the MD. In that case, you may be billed. Return to the emergency department if he notices any signs or symptoms of infection such as redness, swelling, increased pain, fever, purulent drainage. Referrals: Tobias Blake MD [Primary Care Provider] - As per Instructions
[2018-03-19 22:52] VITALS: BP 96/54
== END 2018-03-19 22:47 | disposition home or self-care (01) ==
PROC: 0HQFXZZ Repair Right Hand Skin, External Approach (ICD-10-PCS; principal; 2018-03-19)
DX: S61.011A Laceration without foreign body of right thumb without damage to nail, initial encounter (principal); I25.10 Atherosclerotic heart disease of native coronary artery without angina pectoris; Z79.82 Long term (current) use of aspirin; Z87.891 Personal history of nicotine dependence; Z95.5 Presence of coronary angioplasty implant and graft; W26.0XXA Contact with knife, initial encounter; Y92.009 Unspecified place in unspecified non-institutional (private) residence as the place of occurrence of the external cause; Y99.8 Other external cause status; Y93.89 Activity, other specified

== ENCOUNTER → 2018-06-02 | Outpatient (CLI) | payer OTHER | LOC: FIMAGING 07:10 | PROVIDERS: ATTEND Family Medicine | DX: M25.551 Pain in right hip (principal); M25.552 Pain in left hip; M53.3 Sacrococcygeal disorders, not elsewhere classified; Z98.1 Arthrodesis status ==

== ENCOUNTER 2018-12-16 17:55 | Emergency (ER) | payer OTHER | END 2018-12-16 18:52 | disposition home or self-care (01) ==